=== PATIENT | female | born 1990 | race Two or more races ===

== ENCOUNTER 2021-08-07 19:13 | Emergency (ER) | payer MEDICAID ==
[~2021-08-07] VITALS: Ht 167.6 cm; Wt 83.9 kg
[2021-08-07] MEDS ORDERED: ALBUTEROL SULF 2.5 MG/0.5ML(0.5%) NEB SOLN NEB ONE (19:30)
[2021-08-07] MEDS ORDERED: IPRATROPIUM BROM 0.5 MG/2.5ML INH SOL NEB ONE (19:30)
[2021-08-07] MEDS ORDERED: ONDANSETRON HCL 4 MG/2 ML VIAL IV ONE (19:45)
[2021-08-07 20:09] LABS: Basophils # (auto) 0 10 ^3/uL (0-0.2); Eosinophils # (auto) 0.1 10 ^3/uL (0-0.8); Eosinophils % (auto) 1.3 % (0.0-7.0); Lymphocytes # (auto) 2.4 10 ^3/uL (0.4-5.4)
[2021-08-07 20:11] LABS: Basophils % (auto) 0.3 % (0.0-2.0); Hematocrit 37.7 % (36.0-46.0); Hemoglobin 12.5 g/dL (12.2-16.2); Lymphocytes % (auto) 39.7 % (10.0-50.0); Mean Corpuscular Hemoglobin 27.1 pg (28.0-32.0); Mean Corpuscular Hgb Conc. 33.3 g/dL (32.0-36.0); Mean Corpuscular Volume 81.4 fL (80.0-100.0); Monocytes # (auto) 0.5 10 ^3/uL (0-1.3); Monocytes % (auto) 8.4 % (0.0-12.0); Neutrophils % (auto) 50.3 % (37.0-80.0); Nucleated Red Blood Cells % 0.2 %; Red Blood Cells 4.64 10^6/uL (4.0-5.20); Red Cell Distribution Width 14.3 % (11.8-14.3)
[2021-08-07 20:21] LABS: Albumin 3.3 g/dL (3.4-5.0); Anion Gap 6 (5-15); Blood Urea Nitrogen 13 mg/dL (7-18); Calcium 8.1 mg/dL (8.5-10.1); Carbon Dioxide 25 mmol/L (21-32); Chloride 111 mmol/L (98-107); Glucose 124 mg/dL (74-106); Potassium 3.7 mmol/L (3.5-5.1); Sodium 142 mmol/L (136-145)
[2021-08-07 20:24] LABS: Alanine Aminotransferase 27 U/L (13-56); Alkaline Phosphatase 58 U/L (45-117); Aspartate Aminotransferase 28 U/L (15-37); BUN/Creatinine Ratio 15.9; Bilirubin, Total < 0.1 mg/dL (0.2-1.0); GFR African American 105 mL/min; GFR Non-African American 87 mL/min
[2021-08-07] MEDS ORDERED: PHEN95TA10 PO (20:58)
[2021-08-07] MEDS ORDERED: CEPH-509 PO (20:58)
[2021-08-08] MEDS ORDERED: ALBUAER3 IN (00:04)
[2021-08-08 00:06] VITALS: BP 125/79
== END 2021-08-08 00:06 | disposition home or self-care (01) ==
LOC: ER 19:13
DX: N39.0 Urinary tract infection, site not specified (principal); R94.31 Abnormal electrocardiogram [ECG] [EKG]
CPT/HCPCS: 36415; 80053; 84702; 85025; 85379; 93005; 94640; 99284; J7644

== ENCOUNTER → 2021-09-08 | Emergency (ER) | payer MEDICAID ==
[~2021-09-08] VITALS: Ht 167.6 cm; Wt 83.9 kg
[~2021-09-08] MED LIST: ALBUAER3 IN; ALBUTEROL SULF 2.5 MG/0.5ML(0.5%) NEB SOLN NEB ONE; CEPH-509 PO; EPIN0.1I11 IJ; FAMOTIDINE (10MG/ML) 2ML VL IV ONE; IPRATROPIUM BROM 0.5 MG/2.5ML INH SOL NEB ONE; PHEN95TA10 PO; PRED20TA2 PO; diphenhdrAMINE HCL 50 MG/1 ML VL IV ONE; methylPREDNISolone SOD SUCC 125 MG/2 ML VL IV ONE
[2021-09-08 05:00] VITALS: BP 108/74
== END | disposition home or self-care (01) ==
LOC: ER 00:19
DX: T78.40XA Allergy, unspecified, initial encounter (principal); J45.909 Unspecified asthma, uncomplicated; Z79.899 Other long term (current) drug therapy; Y92.89 Other specified places as the place of occurrence of the external cause
CPT/HCPCS: 96374; 96375; 99284; J1200; J2930; J3490; J7644

== ENCOUNTER 2022-09-29 21:49 | Emergency (ER) | payer MEDICAID ==
[~2022-09-29] VITALS: Ht 162.6 cm; Wt 83.0 kg
[~2022-09-29 21:49] MED LIST changes: -ALBUTEROL SULF 2.5 MG/0.5ML(0.5%) NEB SOLN NEB ONE; -FAMOTIDINE (10MG/ML) 2ML VL IV ONE; -IPRATROPIUM BROM 0.5 MG/2.5ML INH SOL NEB ONE; -diphenhdrAMINE HCL 50 MG/1 ML VL IV ONE; -methylPREDNISolone SOD SUCC 125 MG/2 ML VL IV ONE
[2022-09-29] MEDS ORDERED: ONDANSETRON ODT 4 MG TAB PO ONE (22:45)
[2022-09-29 23:00] LABS: Urine Bacteria NONE SEEN /hpf (None Seen); Urine Blood Negative /uL (Negative); Urine Specific Gravity 1.004 (1.001-1.035); Urine WBC <1 /hpf (0 - 5)
[2022-09-29 23:02] LABS: Basophils # (auto) 0 10 ^3/uL (0-0.2); Basophils % (auto) 0.4 % (0.0-2.0); Eosinophils # (auto) 0.1 10 ^3/uL (0-0.8); Eosinophils % (auto) 1.6 % (0.0-7.0); Hematocrit 41.7 % (36.0-46.0); Hemoglobin 13.7 g/dL (12.2-16.2); Lymphocytes # (auto) 2.3 10 ^3/uL (0.4-5.4); Lymphocytes % (auto) 29.3 % (10.0-50.0); Mean Corpuscular Hemoglobin 27.5 pg (28.0-32.0); Mean Corpuscular Hgb Conc. 32.9 g/dL (32.0-36.0); Mean Corpuscular Volume 83.7 fL (80.0-100.0); Monocytes # (auto) 0.6 10 ^3/uL (0-1.3); Monocytes % (auto) 8.4 % (0.0-12.0); Neutrophils # (auto) 4.6 10 ^3/uL (1.6-8.6); Neutrophils % (auto) 60.3 % (37.0-80.0); Nucleated Red Blood Cells % 0.1 %; Red Blood Cells 4.98 10^6/uL (4.0-5.20); Red Cell Distribution Width 14.3 % (11.8-14.3); White Blood Cell 7.7 10^3/uL (4.4-10.8)
[2022-09-29 23:21] LABS: Potassium 3.8 mmol/L (3.5-5.1)
[2022-09-29 23:26] VITALS: BP 106/65; PULSE 73; RESP 16; TEMP 97.3; O2SAT 97
[2022-09-29 23:28] LABS: Albumin 3.9 g/dL (3.4-5.0); BUN/Creatinine Ratio 8.7 (10.0-20.0); Bilirubin, Total 0.3 mg/dL (0.2-1.0); Calcium 8.8 mg/dL (8.5-10.1); Total Protein 7.9 g/dL (6.4-8.2)
[2022-09-30] MEDS ORDERED: ZOFR4T PO
== END 2022-09-30 00:10 | disposition home or self-care (01) ==
LOC: ER 21:51
DX: A08.4 Viral intestinal infection, unspecified (principal); J45.909 Unspecified asthma, uncomplicated; E66.9 Obesity, unspecified; R94.31 Abnormal electrocardiogram [ECG] [EKG]; R10.2 Pelvic and perineal pain; Z68.31 Body mass index [BMI] 31.0-31.9, adult
CPT/HCPCS: 36415; 80053; 81001; 84702; 85025; 93005; 99284; Q0162

== ENCOUNTER 2023-04-04 19:12 | Emergency (ER) | payer MEDICAID ==
[~2023-04-04] VITALS: Ht 162.6 cm; Wt 73.2 kg
[~2023-04-04 19:12] MED LIST changes: +ZOFR4T PO
[2023-04-04 19:32] VITALS: BP 131/75; PULSE 69; RESP 16; TEMP 97.9; O2SAT 100
[2023-04-04] MEDS ORDERED: ZOFR4T PO (21:20)
[2023-04-04] MEDS ORDERED: HYDR-4902 PO (21:20)
[2023-04-04] MEDS ORDERED: ONDANSETRON ODT 4 MG TAB PO ONE (21:30)
[2023-04-04] MEDS ORDERED: HYDROcodone-ACET 5/325MG TAB PO ONE (21:30)
== END 2023-04-04 22:55 | disposition home or self-care (01) ==
LOC: ER 19:12
DX: S06.0X0A Concussion without loss of consciousness, initial encounter (principal); S00.03XA Contusion of scalp, initial encounter; J45.909 Unspecified asthma, uncomplicated; W22.8XXA Striking against or struck by other objects, initial encounter; Y93.89 Activity, other specified; Y92.89 Other specified places as the place of occurrence of the external cause; Y99.8 Other external cause status
CPT/HCPCS: 70450; 99284; Q0162